=== PATIENT | male | born 1975 | race Caucasian/White ===

== ENCOUNTER 2023-12-30 12:02 | Emergency (ER) | payer MEDICAID, OTHER ==
[~2023-12-30] VITALS: Ht 185.4 cm; Wt 75.1 kg
[2023-12-30 13:14] LABS: Chloride 105 mmol/L (98-107); Potassium 4.1 mmol/L (3.5-5.1); Sodium 141 mmol/L (136-145)
[2023-12-30 13:15] LABS: Anion Gap 7 (5-15); Carbon Dioxide 29 mmol/L (20-31)
[2023-12-30 13:20] LABS: BUN/Creatinine Ratio 15.7 (10.0-20.0); Blood Urea Nitrogen 13 mg/dL (9-23); Glucose 158 mg/dL (74-106)
[2023-12-30 14:31] LABS: Basophils # (auto) 0 10 ^3/uL (0-0.2); Basophils % (auto) 0.8 % (0.0-2.0); Eosinophils # (auto) 0.1 10 ^3/uL (0-0.8); Eosinophils % (auto) 1.1 % (0.0-7.0); Hemoglobin 14.8 g/dL (13.5-17.5); Lymphocytes # (auto) 2.2 10 ^3/uL (0.4-5.4); Lymphocytes % (auto) 33.7 % (10.0-50.0); Mean Corpuscular Hemoglobin 31.2 pg (28.0-32.0); Mean Corpuscular Hgb Conc. 36.2 g/dL (32.0-36.0); Mean Corpuscular Volume 86.3 fL (80.0-100.0); Monocytes # (auto) 0.5 10 ^3/uL (0-1.3); Monocytes % (auto) 7.5 % (0.0-12.0); Neutrophils # (auto) 3.7 10 ^3/uL (1.6-8.6); Neutrophils % (auto) 56.9 % (37.0-80.0); Nucleated Red Blood Cells % 0.1 %; Platelet Count (auto) 120 10^3/uL (140-450); Red Blood Cells 4.75 10^6/uL (4.5-5.90); Red Cell Distribution Width 12.3 % (11.8-14.3); White Blood Cell 6.5 10^3/uL (4.4-10.8)
[2023-12-30] MEDS ORDERED: ATEN-60 PO (16:55)
[2023-12-30] MEDS ORDERED: MELO7.5T7 PO (16:55)
[2023-12-30] MEDS ORDERED: METF-370 PO (16:55)
[2023-12-30] MEDS: KETOROLAC TROMETH 60MG/2ML VIAL IM ONE (18:27)
[2023-12-30] MEDS: ATENOLOL 25 MG TAB PO ONE (18:27)
[2023-12-30 20:50] VITALS: BP 111/89; PULSE 78; RESP 18; TEMP 98.7; O2SAT 99
== END 2023-12-30 21:10 | disposition home or self-care (01) ==
LOC: ER 12:07
DX: M72.2 Plantar fascial fibromatosis (principal); I10 Essential (primary) hypertension; G89.29 Other chronic pain; M54.2 Cervicalgia; E11.9 Type 2 diabetes mellitus without complications; Z98.890 Other specified postprocedural states
CPT/HCPCS: 36415; 71045; 80048; 83036; 83880; 84484; 85025; 93005; 96372; 99285; J1885

== ENCOUNTER → 2024-11-14 | Day surgery (SDC) | payer MEDICAID ==
[2024-11-08 10:55] LABS: Hematocrit 43.6 % (41.0-53.0); Hemoglobin 15.4 g/dL (13.5-17.5); Mean Corpuscular Hemoglobin 29.5 pg (28.0-32.0); Mean Corpuscular Volume 83.4 fL (80.0-100.0); Nucleated Red Blood Cells % 0.1 %
[2024-11-08 11:07] LABS: Urine Protein, UAD Negative (Negative)
[2024-11-08 11:22] LABS: INR 1.08 (0.9-1.15); Partial Thromboplastin Time 27.6 SEC (24.5-34.5); Prothrombin Time 11.4 sec (9.3-11.8)
[2024-11-08 11:34] LABS: Alanine Aminotransferase 28 U/L (7-40); Alkaline Phosphatase 99 U/L (46-116); Anion Gap 9 (5-15); BUN/Creatinine Ratio 10.8 (10.0-20.0); Bilirubin, Total 1.0 mg/dL (0.2-1.0); Blood Urea Nitrogen 10 mg/dL (9-23); Calcium 9.6 mg/dL (8.7-10.4); Carbon Dioxide 29 mmol/L (20-31); Chloride 103 mmol/L (98-107); Potassium 4.0 mmol/L (3.5-5.1); Sodium 141 mmol/L (136-145); Total Protein 7.4 g/dL (5.7-8.2)
[2024-11-08 11:37] LABS: Albumin 5.0 g/dL (3.2-4.8); Glucose 201 mg/dL (74-106)
[~2024-11-14] VITALS: Ht 185.4 cm; Wt 88.5 kg
[~2024-11-14] MED LIST: AML5T PO; ATEN-60 PO; BACL20TA PO; DICL1.3P TD; ETAN25IN8 SC; GABA-1308 PO; GLIP5TAB21 PO; HYDROmorphone HCL 2 MG/ML VL/or syr IV PRN; KETOROLAC TROMETH 30 MG/ML 1ML VIAL IV ONE; METOCLOPRAMIDE HCL 5MG/ml INJ 2ml VIAL ONE; MIDAZOLAM HCL 2MG/2ML 2ml VIAL (1mg/ml) ONE; OMEP20TA PO; ONDANSETRON HCL 4 MG/2 ML VIAL IV ONE; ONDANSETRON HCL 4 MG/2 ML VIAL ONE; PROPOFOL 10 MG/ML 20 ML IV ONE; fentaNYL CITRATE 100 MCG/2 ML VL ONE
[2024-11-14] MEDS: ceFAZolin 1GM/50ML 100 ML IV ONE (14:34)
[2024-11-14] MEDS: LIDOCAINE 1% HCL (LOCAL ANESTH.) INJ 20ML MDV ONE (14:48)
[2024-11-14] MEDS: methylPREDNISolone SOD SUCC 40 MG/ML VL ONE (14:57)
[2024-11-14] MEDS: TRIAMCINOLONE 40MG/ML 1ML VIAL ONE (14:57)
[2024-11-14 15:05] VITALS: PULSE 62; RESP 12; TEMP 98.2; O2SAT 97
--- NOTE | 2024-11-14 15:05 | DVHOP2 ---
Operative Report - 2 Report Details Date: 11/14/24 Preop Diagnosis: 1. Bilateral foot plantar fascia fibroma 2. Bilateral foot pain Postop Diagnosis: Same as preop Surgeon: Jing Warren MD Anesthesiologist: See anesthesia Anesthesia: General Consent: The patient was informed of the risks and benefits of the procedure. These include but are not limited to complications of anesthesia, postoperative infection, incomplete relief of symptoms, recurrence of symptoms, damage to blood vessels, nerves and tendons, deep venous thrombosis, pulmonary embolism and possible need for repeat surgery in the future. Complications: None Estimated Blood Loss: Minimal Fluids: See anesthesia Findings: Consistent with the diagnosis Indications for Surgery: Worsening foot pain Name of Procedure Performed 1. Right foot plantar fibroma excision (66497) 2. Left foot plantar fibroma excision (79965) Procedure Details Procedure Details: PRE-PROCEDURE INFORMATION: In the pre-op holding area, the extremity to be operated on was clearly marked and the patient verified correct laterality of the marking. The patient was transferred to the OR table and placed in a supine position. A timeout was performed in which identification of the correct patient, procedure, location, and materials was done. The bilateral foot and leg were prepped and draped in normal sterile fashion. DESCRIPTION OF PROCEDURE: Attention was directed to the right medial aspect of the foot. Using a 15. Blade, a small stab incision was made. Using a hemostat the incision was deepened to the level of the plantar fascia and bone. Using a Tenex device, and ultrasound, the device was used to break up the scar tissue. After adequate debridement of the plantar fascia, it was noted on ultrasound that the thickness of the plantar fascia had improved. Attention was directed to the left medial aspect of the foot. Using a 15. Blade, a small stab incision was made. Using a hemostat the incision was deepened to the level of the plantar fascia and bone. Using a Tenex device, and ultrasound, the device was used to break up the scar tissue. After adequate debridement of the plantar fascia, it was noted on ultrasound that the thickness of the plantar fascia had improved. All surgical wounds were irrigated copiously with saline and closed in layers with the aforementioned suture material. A dry sterile dressing was placed on the surgical extremity. The patient was placed in a postop shoe POSTOPERATIVE INFORMATION: The patient tolerated the above noted procedure and anesthesia well and was transferred to the PACU with vital signs stable, and vascular status intact with capillary refill intact to all digits. Postoperative instructions reviewed in detail with the patient with written instructions provided. Patient will return to clinic in approximately 10-14 days for first postoperative visit. Patient has the number of the clinic and was instructed to call prior to that time should any problems, questions, or concerns arise. Condition Good Disposition Home Visit Coding Podiatry Date of Service if different f: Nov 14, 2024 Billing Provider: JING WARREN DPM Podiatry Common Visit Codes: PROCEDURE ONLY JING WARREN DPM Nov 14, 2024 15:05
[2024-11-14 15:15] VITALS: PULSE 63; RESP 13; O2SAT 97
[2024-11-14 16:00] VITALS: BP 113/69; PULSE 63; RESP 17; O2SAT 97
== END | disposition home or self-care (01) ==
LOC: SUR 11:59
PROVIDERS: ATTEND Podiatrist
DX: M72.2 Plantar fascial fibromatosis (principal); D36.7 Benign neoplasm of other specified sites; I10 Essential (primary) hypertension; E11.9 Type 2 diabetes mellitus without complications; Z79.899 Other long term (current) drug therapy; Z79.84 Long term (current) use of oral hypoglycemic drugs; Z98.890 Other specified postprocedural states
CPT/HCPCS: 28060; 36415; 80053; 81001; 82962; 85025; 85610; 85730; J0690; J2003; J2250; J2405; J2704; J2765; J2919; J3010; J3301